=== PATIENT | male | born 1985 | race Caucasian/White ===

== ENCOUNTER 2018-10-05 16:06 | Emergency (ER) | payer SELFPAY ==
[~2018-10-05] VITALS: Ht 175.3 cm; Wt 75.4 kg
[2018-10-05 16:09] VITALS: Ht 175.3 cm; Wt 75.4 kg
[2018-10-05 17:39] VITALS: BP 132/89
== END 2018-10-05 17:39 | disposition home or self-care (01) ==
LOC: ED 16:06
DX: N48.1 Balanitis (principal)

== ENCOUNTER 2019-12-19 21:41 | Emergency (ER) | payer BC ==
[~2019-12-19] VITALS: Ht 167.6 cm; Wt 72.6 kg
[2019-12-19 21:41] VITALS: Ht 167.6 cm; Wt 72.6 kg
[2019-12-20 03:50] VITALS: BP 145/95
== END 2019-12-20 03:57 | disposition home or self-care (01) ==
LOC: ED 21:41
DX: J40 Bronchitis, not specified as acute or chronic (principal); Z20.828 Contact with and (suspected) exposure to other viral communicable diseases
CPT/HCPCS: Q0092; U0003-CS

== ENCOUNTER 2020-06-06 11:01 | Emergency (ER) | payer BC, SELFPAY ==
[~2020-06-06] VITALS: Ht 175.3 cm; Wt 77.1 kg
[2020-06-06 11:03] VITALS: BP 158/97; Ht 175.3 cm; Wt 77.1 kg
== END 2020-06-06 14:10 | disposition home or self-care (01) ==
LOC: ED 11:01
DX: U07.1 COVID-19 (principal); J12.89 Other viral pneumonia
CPT/HCPCS: 87804; U0003